=== PATIENT | male | born 1975 | race Caucasian/White ===

== ENCOUNTER 2022-02-18 12:18 | Emergency (ER) | payer BC, SELFPAY ==
[2022-02-18 12:57] VITALS: BP 140/88; PULSE 84; RESP 18; TEMP 36.6; O2SAT 100
--- NOTE | 2022-02-18 13:17 | ED.SKABFB ---
HPI - Skin/Abscess/Foreign Bdy General Chief complaint: Skin/Abscess/Foreign Body Stated complaint: insect bite rt hip Time Seen by Provider: 02/18/22 13:17 Source: patient Mode of arrival: ambulatory Limitations: no limitations History of Present Illness HPI narrative: 46-year-old male presents with complaint of bump to right hip area with bruising. Reports he had similar bump 2 to 3 months ago that popped on its own. Drained. States he still has the same bruise from popping open. States just over the past couple days he noticed that bump is back. No pain. No concern for infection. States I just do not know why it came back . Patient has a wine maker. All systems reviewed and negative except as noted above. Related Data Home Medications Medication Instructions Recorded Confirmed No Home Medications 02/18/22 02/18/22 Allergies Allergy/AdvReac Type Severity Reaction Status Date / Time No Known Allergies Allergy Verified 02/18/22 13:20 Review of Systems Review of Systems: CONSTITUTIONAL: Denies fever, chills, or sweats. EYES: Denies visual changes, redness, or discharge. ENT: Denies rhinorrhea, congestion, sore throat, or otalgia. CARDIOVASCULAR: Denies chest pain, palpitations, or edema. RESPIRATORY: Denies cough or dyspnea. GASTROINTESTINAL: Denies abdominal pain, nausea, vomiting, or diarrhea. GENITOURINARY: Denies dysuria or hematuria. SKIN: Denies rash or itching. Reports a bump to right hip. MUSCULOSKELETAL: Denies back pain, joint pain, or myalgia. NEUROLOGIC: Denies headache, numbness, or weakness. PSYCHIATRIC: Denies anxiety or depression. All other systems reviewed are negative, except as documented in HPI. PMFSH Comments At time of signature, agree with nursing past medical, surgical, social and family history. There is no relevant family history pertinent to the presenting complaint. Exam Narrative: GENERAL: This is a well-nourished, well-developed patient, in no apparent distress. HEAD: normocephalic, atraumatic. EYES: PERRL. Sclera clear/white. Vision is grossly intact. EARS: External ears normal NOSE: External nose normal THROAT: Mucous membranes moist, posterior pharynx clear. NECK: Neck supple, non-tender without lymphadenopathy, masses or thyromegaly. CARDIOVASCULAR: Regular rate and rhythm without murmurs, gallops, or rubs. RESPIRATORY: Clear to auscultation. Breath sounds equal bilaterally. No wheezes, rales, or rhonchi. SKIN: warm, Dry, intact with no suspicious lesions or rash, good texture and turgor. There is a firm area of skin to right hip that is possible cyst or scar tissue. No drainage or fluctuance. No signs of infection. NEURO: awake, alert, and oriented to person, place and time. There were no obvious focal neurologic abnormalities. EXTREMITIES: normal range of motion to all extremities. Course Course Level of Care: Express Care Visit Vital Signs Vital signs: Vital Signs Temperature 36.6 C 02/18/22 12:57 Pulse Rate 84 02/18/22 12:57 Respiratory Rate 18 02/18/22 12:57 Blood Pressure 140/88 02/18/22 12:57 Pulse Oximetry 100 02/18/22 12:57 Temperature 36.6 C 02/18/22 12:57 Pulse Rate 84 02/18/22 12:57 Respiratory Rate 18 02/18/22 12:57 Blood Pressure 140/88 02/18/22 12:57 Pulse Oximetry 100 02/18/22 12:57 Reviewed MDM - Skin/Abscess/Foreign Bdy MDM Narrative Medical decision making narrative: Possible cyst to right hip. No signs of impaction. Recommend follow-up with wine maker. Patient is aware of diagnosis, understands and agrees to treatment plan. Anticipatory guidance given. Patient agrees to follow-up as directed and is aware of reasons to seek care at the emergency department. Portions of this record may have been created with voice recognition software Discharge Plan Discharge Clinical Impression: Epidermal cyst Patient Disposition: Home, Self-Care Condition: Stable Instructions: Dermal Cyst
== END 2022-02-18 13:38 | disposition home or self-care (01) ==
PROVIDERS: Emergency Provider Nurse Practitioner Family
DX: L72.0 Epidermal cyst (principal)
CPT/HCPCS: 99211; G0463